=== PATIENT | female | born 2005 | race Two or more races ===

== ENCOUNTER → 2024-10-03 | Outpatient (CLI) | payer MEDICAID, SELFPAY ==
--- NOTE | 2024-10-03 09:30 | XR_ITS ---
Examination: Upper GI series with KUB Esophagram standard 11 spot fluoroscopic films of the esophagus and stomach Fluoroscopy Date and time: October 03, 2024 0922 hours INDICATIONS: Heartburn reflux months TECHNIQUE AND FINDINGS: Bedspread Cutter Hand AP supine abdomen single view nonobstructive bowel gas pattern Patient swallowed thin barium with 11 spot fluoroscopic films of the esophagus and stomach Primary peristaltic esophageal waves Mild intermittent gastroesophageal reflux No constricting esophageal lesion No stricture gastroesophageal junction No gastric mass deformity or ulceration Duodenal bulb expands symmetrically and small bowel visualized unremarkable IMPRESSION: Mild intermittent gastroesophageal reflux No gastric or duodenal mass deformity or ulceration
== END | disposition home or self-care (01) ==
PROVIDERS: PCP Family Medicine; Referring Provider Specialist; Visit Provider Specialist
DX: K21.9 Gastro-esophageal reflux disease without esophagitis (principal)
CPT/HCPCS: 74240; A4649